=== PATIENT | male | born 1990 | race Two or more races ===

== ENCOUNTER 2016-06-04 08:54 | Emergency (ER) | payer MEDICAID, OTHER ==
[~2016-06-04] VITALS: Ht 154.9 cm; Wt 104.3 kg
[2016-06-04 09:15] VITALS: BP 110/60
== END 2016-06-04 15:31 | disposition left against medical advice (07) ==
LOC: ER 09:04
DX: Z76.1 Encounter for health supervision and care of foundling (principal); Z53.21 Procedure and treatment not carried out due to patient leaving prior to being seen by health care provider